=== PATIENT | female | born 1980 | race Caucasian/White ===

== ENCOUNTER 2019-09-02 10:25 | Emergency (ER) | payer OTHER, SELFPAY ==
[2019-09-02 10:36] VITALS: BP 107/76; PULSE 74; RESP 14; TEMP 36.6; O2SAT 98
--- NOTE | 2019-09-02 11:09 | ED.FEMALEGU ---
HPI - Female Genitourinary General Chief complaint: Urogenital-Female Stated complaint: blood in urine/painful urination Time Seen by Provider: 09/02/19 11:02 Source: patient and RN notes reviewed Mode of arrival: ambulatory Limitations: no limitations History of Present Illness HPI Narrative: Patient presents today complaining of a 3-day history of hematuria with dysuria, urgency, and frequency that started yesterday. This is accompanied by some suprapubic cramping. Denies back pain, fever, vaginal discharge. No history of UTIs. LMP was August 17. Patient has had cranberry juice and increased her water intake. MD elicited complaint: dysuria Related Data Allergies Allergy/AdvReac Type Severity Reaction Status Date / Time aloe vera Allergy Unknown Skin Verified 09/02/19 10:52 [Solarcaine Cool Aloe] Reaction benzocaine [Solarcaine] Allergy Unknown Skin Verified 09/02/19 10:52 Reaction codeine Allergy Unknown Nausea Verified 09/02/19 10:52 lidocaine Allergy Unknown Skin Verified 09/02/19 10:52 [Solarcaine Cool Aloe] Reaction triclosan [Solarcaine] Allergy Unknown Skin Verified 09/02/19 10:52 Reaction Review of Systems Review of Systems: Narrative: CONSTITUTIONAL: Denies body aches, fever, chills, or sweats. EYES: Denies visual changes, redness, or discharge. ENT: Denies rhinorrhea, congestion, sore throat, or otalgia. CARDIOVASCULAR: Denies chest pain, palpitations, or edema. RESPIRATORY: Denies cough or dyspnea. GASTROINTESTINAL: Denies abdominal pain, nausea, vomiting, or diarrhea. GENITOURINARY: +Dysuria, hematuria, suprapubic cramping, urgency, frequency. Denies flank pain SKIN: Denies rash, itching, or wounds. MUSCULOSKELETAL: Denies back pain, joint pain, or myalgia. NEUROLOGIC: Denies headache, numbness, tingling, or weakness. PSYCH: Denies depression or anxiety. [facility] Past Medical History Medical History (Updated 09/02/19 @ 11:12 by Genet Darke, PERSONAL LINES UNDERWRITER, ) Basal cell carcinoma Family History Family History (Updated 07/02/17 @ 14:36 by DOCTOR UNKNOWN) Father Diabetes mellitus Acute myocardial infarction Social History Social History Smoking status: Never smoker Alcohol intake: current Comments At time of signature, I have reviewed and agree with nursing past medical, surgical, social and family history unless otherwise noted. Please see nursing chart for further information. There is no relevant family history pertinent to the presenting complaint Exam Narrative: Exam Narrative: GENERAL: Well-appearing, well-nourished, and in no acute distress. HEAD: Normocephalic, atraumatic. EYES: EOMI. No redness or drainage. Conjunctivae normal. ENT: Mucous membranes pink and moist. NECK: Normal AROM. CHEST: No respiratory distress. Clear to auscultation. HEART: Regular rate and rhythm. No murmur appreciated. Normal peripheral pulses. ABDOMEN: Soft, nondistended, normal active bowel sounds.+Suprapubic tenderness.-CVAT MUSCULOSKELETAL: No bony tenderness. EXTREMITIES: Normal range of motion. No edema. SKIN: Warm, dry, no rash. Capillary refill normal. Normal skin turgor. NEURO: No focal deficits. Alert and oriented x3. Gait steady. PSYCH: Normal affect. No signs of depression or anxiety. Course Vital Signs Vital signs: Vital Signs Temperature 97.8 F 09/02/19 10:36 Pulse Rate 74 09/02/19 10:36 Respiratory Rate 14 09/02/19 10:36 Blood Pressure 107/76 09/02/19 10:36 Pulse Oximetry 98 09/02/19 10:36 Temperature 97.8 F 09/02/19 10:36 Pulse Rate 74 09/02/19 10:36 Respiratory Rate 14 09/02/19 10:36 Blood Pressure 107/76 09/02/19 10:36 Pulse Oximetry 98 09/02/19 10:36 Reviewed MDM - Female Genitourinary Differential Diagnosis Differential diagnosis: Likely urinary tract infection and cystitis Lab Data Attestation: I reviewed the patient's lab results. Labs: Urine Glucose Negative Reference Range: Negative*
== END 2019-09-02 11:16 | disposition home or self-care (01) ==
PROVIDERS: Emergency Provider Nurse Practitioner; PCP Obstetrics & Gynecology
DX: N30.01 Acute cystitis with hematuria (principal)
CPT/HCPCS: 81003; 87086; 87088; 99213; G0463

== ENCOUNTER 2021-07-01 07:03 | Outpatient (CLI) | payer OTHER, SELFPAY ==
--- NOTE | ~2021-07-01 | MM_ITS ---
EXAMINATION: MM screening [place] BI w [facility] HISTORY: Screening mammogram TECHNIQUE: Craniocaudal and mediolateral oblique 3-D tomosynthesis images were obtained and synthetic 2-D images were generated. CAD analysis was submitted and interpreted. COMPARISON: No prior mammogram is available for comparison at this institution. BREAST PARENCHYMAL COMPOSITION: The breasts are extremely dense, which lowers the sensitivity of mamm ography. FINDINGS: There is no evidence of suspicious mass, calcification, or architectural distortion to sugg est malignancy in either breast. IMPRESSION: 1. No mammographic evidence of malignancy. 2. Recommend routine screening mammography in one year. 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
== END 2021-07-01 07:04 | disposition home or self-care (01) ==
LOC: CHSIMG 07:05
PROVIDERS: PCP Internal Medicine; Visit Provider Internal Medicine
DX: Z12.31 Encounter for screening mammogram for malignant neoplasm of breast (principal)
CPT/HCPCS: 77063; 77067

== ENCOUNTER 2022-03-09 00:52 | Day surgery (SDC) | payer OTHER, SELFPAY ==
[2022-03-06 09:45] VITALS: BMI 28.3
[2022-03-09 06:28] VITALS: BP 111/78; PULSE 74; RESP 16; TEMP 36.2; O2SAT 100
[2022-03-09] MEDS: LACTATED RINGERS 1,000 ML 150 ML IV CONT (06:30)
--- NOTE | 2022-03-09 07:19 | WPDANESEPPF ---
Anes - Initial Pre Proc Eval Procedure: Operation Date: 03/09/22 07:30 Proposed Procedures p Screening Colonoscopy - Shon Ayers MD Date/Time: 03/09/22 07:19 Surgeon: Shon Ayers MD Pre Op Diagnosis: family hx colon ca Patient Data Age: 41 Gender: F Height: 1.63 m Weight: 75 kg Last Vital Signs Temp 97.1 F L 03/09/22 06:28 Pulse 74 03/09/22 06:28 Resp 16 03/09/22 06:28 BP 111/78 03/09/22 06:28 Pulse Ox 100 03/09/22 06:28 O2 Del Method Room Air 03/09/22 06:28 Allergies Allergy/AdvReac Type Severity Reaction Status Date / Time codeine AdvReac Intermediate Nausea Verified 03/09/22 06:25 aloe vera AdvReac Unknown Skin Verified 03/09/22 06:25 [Solarcaine Cool Aloe] Reaction benzocaine [Solarcaine] AdvReac Unknown Skin Verified 03/09/22 06:25 Reaction lidocaine AdvReac Unknown Skin Verified 03/09/22 06:25 [Solarcaine Cool Aloe] Reaction triclosan [Solarcaine] AdvReac Unknown Skin Verified 03/09/22 06:25 Reaction Home Medications Medication Instructions Recorded Confirmed Type valacyclovir 500 mg tablet 500 mg PO DAILY 03/06/22 03/09/22 History Patient hx anesthesia problems: none Family hx anesthesia problems: none Results Review: All pre-operative results and documents have been reviewed as part of the pre-operative evaluation. [facility] Past Medical History Medical History (Updated 09/03/19 @ 00:01 by Background Maggi) Basal cell carcinoma Family History Family History (Updated 07/02/17 @ 14:36 by DOCTOR UNKNOWN) Father Diabetes mellitus Acute myocardial infarction Social History Social History Smoking status: Never smoker Alcohol intake: current Drinks per week: 2 Alcohol use details: GLASSES WINE Substance use: never Substance use type: does not use Living arrangements: with family Spiritual care concerns: No Anes - Eval Final PreProcedure Day of Procedure 03/09/22 07:19 Patient weight: normal Heart: regular rate and rhythm Lungs: clear to auscultation Airway: Mallampati scale class II Neurological: alert and oriented Last oral intake: >/= 8 hours ASA classification: II Emergent: no Anesthetic plan: proceed Anesthesia type and monitoring: general GIVS and standard monitoring Results Review: All pre-operative results and documents have been reviewed as part of the pre-operative evaluation. Informed Consent: The patient's anesthetic plan and its attendant risks and benefits were discussed with the patient/family/POA. Questions were solicited and answers provided to the satisfaction of the patient/family/POA.
[2022-03-09 07:46] VITALS: BP 107/66; PULSE 71; RESP 18; O2SAT 100
--- NOTE | 2022-03-09 07:46 | PM.HPGS ---
History of Present Illness History of Present Illness Consent: Risks, benefits, and alternatives have been discussed and questions answered. Patient agrees to proceed with procedure. Chief complaint: family hx colon ca Narrative: Xochilt Wynn is a 41 year old female Presents for screening colonoscopy. Patient's family history is significant that her father had colon cancer. Patient reports that her current weight appetite and bowel movements are normal. She denies abdominal pain. She has had no bleeding. Family history is as stated. Review of Systems Review of Systems: Review of systems noncontributory. [facility] Past Medical History Medical History (Updated 03/09/22 @ 07:47 by Shon Ayers MD) Basal cell carcinoma Family History Family History (Updated 07/02/17 @ 14:36 by DOCTOR UNKNOWN) Father Diabetes mellitus Acute myocardial infarction Social History Social History Smoking status: Never smoker Alcohol intake: current Drinks per week: 2 Alcohol use details: GLASSES WINE Substance use: never Substance use type: does not use Living arrangements: with family Spiritual care concerns: No Meds Home Medications and Allergies Home Medications Medication Instructions Recorded Confirmed Type valacyclovir 500 mg tablet 500 mg PO DAILY 03/06/22 03/09/22 History Allergies Allergy/AdvReac Type Severity Reaction Status Date / Time codeine AdvReac Intermediate Nausea Verified 03/09/22 06:25 aloe vera AdvReac Unknown Skin Verified 03/09/22 06:25 [Solarcaine Cool Aloe] Reaction benzocaine [Solarcaine] AdvReac Unknown Skin Verified 03/09/22 06:25 Reaction lidocaine AdvReac Unknown Skin Verified 03/09/22 06:25 [Solarcaine Cool Aloe] Reaction triclosan [Solarcaine] AdvReac Unknown Skin Verified 03/09/22 06:25 Reaction Vital Signs Vital Signs - 24 hr 03/09/22 06:28 Temperature 97.1 F L Pulse Rate 74 Respiratory Rate 16 Blood Pressure 111/78 Pulse Oximetry 100 Oxygen Delivery Room Air Exam Narrative: Physical exam reveals patient to be alert. Vital signs stable. HEENT exam is unremarkable. Patient is anicteric. Lungs are clear to auscultation and percussion. Heart is without murmur or extra sounds. Abdomen bowel sounds are present soft nontender with no organomegaly. Digital external rectal exam is normal. Assessment and Plan Assessment and plan (1) Family history of colon cancer in father: Code(s): Z80.0 - Family history of malignant neoplasm of digestive organs Status: Acute Assessment and Plan: Patient's father had colon cancer. Plan for surveillance colonoscopy now and consider this at 5 year intervals in the future
[2022-03-09 07:56] VITALS: BP 105/80; PULSE 71; RESP 20; O2SAT 100
[2022-03-09 08:06] VITALS: BP 109/67; PULSE 62; RESP 14; O2SAT 100
== END 2022-03-09 08:23 | disposition home or self-care (01) ==
PROVIDERS: PCP Internal Medicine; Visit Provider Internal Medicine Gastroenterology
PROC: 0DJD8ZZ Inspection of Lower Intestinal Tract, Via Natural or Artificial Opening Endoscopic (ICD-10-PCS; CPT 45378; principal; 2022-03-09 07:30)
DX: Z12.11 Encounter for screening for malignant neoplasm of colon (principal); K64.8 Other hemorrhoids; K57.30 Diverticulosis of large intestine without perforation or abscess without bleeding; Z80.0 Family history of malignant neoplasm of digestive organs
CPT/HCPCS: 45378; J2704; J7120

== ENCOUNTER 2022-07-06 07:27 | Outpatient (CLI) | payer OTHER, SELFPAY ==
--- NOTE | ~2022-07-06 | MM_ITS ---
EXAMINATION: MM screening [facility] BI w yani HISTORY: Screening mammogram TECHNIQUE: Craniocaudal and mediolateral oblique 3-D tomosynthesis images were obtained and synthetic 2-D images were generated. CAD analysis was submitted and interpreted. COMPARISON: 07/01/2021 BREAST PARENCHYMAL COMPOSITION: The breasts are extremely dense, which lowers the sensitivity of mamm ography. FINDINGS: No suspicious mass, calcification, or architectural distortion are identified in either viola ast to suggest malignancy. There has been no suspicious interval change. IMPRESSION: 1. No mammographic evidence of malignancy. 2. Recommend routine screening mammography in one year. 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
== END 2022-07-06 07:28 | disposition home or self-care (01) ==
PROVIDERS: PCP Internal Medicine
DX: Z12.31 Encounter for screening mammogram for malignant neoplasm of breast (principal)
CPT/HCPCS: 77063; 77067

== ENCOUNTER 2023-07-09 12:40 | Outpatient (CLI) | payer OTHER, SELFPAY ==
--- NOTE | ~2023-07-09 | MM_ITS ---
EXAMINATION: MM screening [place] BI w yani HISTORY: Screening mammogram TECHNIQUE: Craniocaudal and mediolateral oblique 3-D tomosynthesis images were obtained and synthetic 2-D images were generated. CAD analysis was submitted and interpreted. COMPARISON: 07/16/2022, 06/2021 bilateral screening mammogram examinations BREAST PARENCHYMAL COMPOSITION: The breasts are heterogeneously dense, which may obscure small masses . FINDINGS: There is no evidence of suspicious mass, calcification, or architectural distortion to sugg est malignancy in either breast. There has been no suspicious interval change. IMPRESSION: 1. No mammographic evidence of malignancy. 2. Recommend routine screening mammography in one year. 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
== END 2023-07-09 12:41 | disposition home or self-care (01) ==
PROVIDERS: PCP Internal Medicine
DX: Z12.31 Encounter for screening mammogram for malignant neoplasm of breast (principal)
CPT/HCPCS: 77063; 77067

== ENCOUNTER 2024-11-21 08:19 | Emergency (ER) | payer OTHER, SELFPAY ==
--- NOTE | ~2024-11-21 | XR_ITS ---
EXAM/ PROCEDURE: XR ankle RT min 3V - 11/21/2024 8:38 CDT HISTORY: 43 years old Female with pain medial aspect, dropped heavy frozen object COMPARISON: None available TECHNIQUE: Three view(s) FINDINGS/ IMPRESSION: There are no fractures or dislocations.Joint spaces are within normal limits. Reviewed, dictated and finalized at location A.
--- OUTSIDE RECORDS SUMMARY | 2024-11-21 08:22 | XMS_ITS | Clinical Summary ---
Author Organization [facility] [place] [address] [facility] lto Address [address] [place] [address] Care Team Providers Care Canvass Manager Name Role Phone Denia Shultz MD Primary Care Provider Allergies No known active allergies Medications acidophilus-pec tin, citrus 100 million cell-10 mg capsule Take by mouth Active jjlukoq-svui-uw ant-yirk-rsqika 100 mg-150 mg- 50 mg-150 mg capsule Take by mouth Active multivitamin with minerals tablet Take 1 tablet by mouth daily Active progesterone (PROMETRIUM) 200 mg capsuleIndicati ons:Menorrhagia with regular cycle Take 1 capsule (200 mg total) by mouth daily 90 capsule 3 06/09/2024 Active Active Problems Problem Noted Date Diagnosed Date Menorrhagia with irregular cycle 09/15/2024 Encounters Date Type Department Care Team Description 09/17/2024 Results Follow-Up [facility] [address] [place] [address] Denis Taylor MD Surgical pathology 09/15/2024 2:19 PM CDT - 09/15/2024 11:59 PM CDT Hospital Encounter [address] [address] Menorrhagia with irregular cycle Discharge Disposition: Discharge to home or self care 09/15/2024 1:50 PM CDT Procedure visit [facility] [address] [place] [address] Denis Taylor MD Menorrhagia with irregular cycle (Primary Dx) 09/04/2024 Results [facility] [address] [place] [address] Denis Taylor MD US Pelvis W Endovaginal 09/01/2024 1:00 PM CDT Ancillary Procedure [facility] [address] [place] [address] Menorrhagia with irregular cycle 08/29/2024 2:45 PM CDT Office Visit [facility] [address] [place] [address] Denis Taylor MD Menorrhagia with irregular cycle (Primary Dx) 08/22/2024 8:00 AM CDT Lab [facility] [address] [place] [address] Menorrhagia with irregular cycle 08/22/2024 Results [facility] [address] [place] [address] Denis Taylor MD CBC with auto differential, Differential, auto from Last 3 Months Surgical History Surgery Date Site/Laterality Comments SKIN CANCER EXCISION 04/30/2017 - 04/29/2018 Basal cell NOSE SURGERY 04/30/1982 - 04/29/1983 Accident - cosmetic repair Medical History Medical History Date Comments No pertinent past medical history Family History Medical History Relation Name Comments Alzheimer's disease Father cause of , age 83 Diabetes Father Diabetes Father's Brother Diabetes Father's Sister Heart attack Maternal Grandmother cause o f Hypertension Maternal Grandmother Hypertension Mother Diabetes Paternal Grandfather Diabetes Paternal Grandmother Relation Name Status Comments Father Father's Brother Father's Sister Maternal Grandmother Mother Paternal Grandfather Paternal Grandmother Social History Tobacco Use Types Packs/Day Years Used Date Smoking Tobacco: Never Smokeless Tobacco: Never Comments No Sex and Gender Information Value Date Recorded Sex Assigned at Not on file Legal 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 Gender Identity Not on file Sexual Orientation Not on file Occupation Industry Job Start Date Job End Date Not on file Not on file Not on file Not on file Obstetrics History Para Term AB IAB SAB Ectopic Multiple Livin g Live Births 0 0 0 0 0 0 0 0 0 0 0 Last Filed Vital Signs Vital Sign Reading Time Taken Comments Blood Pressure 110/70 09/15/2024 1:55 PM CDT Pulse 69 02/24/2021 9:22 AM CDT Temperature 36.8 C (98.3 F) 02/24/2021 9:22 AM CDT Respiratory Rate 14 02/24/2021 9:22 AM CDT Oxygen Saturation 97% 02/24/2021 9:22 AM CDT Inhaled Oxygen Concentration - - Weight 64.4 kg (142 lb) 09/15/2024 1:55 PM CDT Height 162.6 cm (5' 4) 06/09/2024 1:55 PM POWDER GUARD Body Mass Index 24.37 06/09/2024 1:55 PM POWDER GUARD Plan of Treatment Upcoming Encounters Date Type Department Care Team (Late st Contact Info) Description 12/08/2024 7:30 AM CDT Hospital Encounter [facility] Operating Room [address] [place] [address] Denis Taylor MD [address] [place] [address] 12/08/2024 7:30 AM CDT - 12/08/2024 8:30 AM CDT Surgery [facility] Operating Room 1 [place] [address] Denis Taylor MD [address] [place] [address] DILATION AND CURETTAGE/HYSTEROS COPY/ABLATION ENDOMETRIAL-Minerv a Scheduled Procedures Name Priority Associated Diagnoses Date/Ti me DILATION AND CURETTAGE/HYSTEROSCOPY Menorrhagia with irregular cycle 12/08/2024 7:30 AM CDT Health Maintenance Due Date Last Done Comments Cervical Cancer Screening 1980 Depression Screening 1980 Hepatitis C Screening 1980 DTaP/Tdap/Td Vaccine (1 - Tdap) 12/16/1991 Varicella Vaccines (1 of 2 - 13+ 2-dose series) 1993 Hepatitis B Screening 1998 Regular Well Visit/Exam 18-64 1998 HPV Vaccines (1 - 3-dose SCD M series) 12/16/2007 Covid-19 Vaccine (3 - 2023-2 5 season) 2023 07/25/2020, 06/29/2020 Influenza Vaccine (#1) 2024 5, 02/16/2014 Breast Cancer Screening-Mammogram 07/11/2025 07/11/2024 Pneumococcal vaccine <65 Aged Out No longer eligible based on patient's age to complete this topic Procedures Procedure Name Priority Date/Time Associated Diagnosis Comments SURGICAL PATHOLOGY Routine 09/15/2024 10 :38 AM CDT Menorrhagia with irregular cycle US PELVIS W ENDOVAGINAL Schedule Routine, Read Routine (OP Routine) 09/01/2024 1:47 PM CDT Menorrhagia with irregular cycle DIFFERENTIAL AUTO Routine 08/22/2024 7:4 8 AM CDT Menorrhagia with irregular cycle CBC WITH AUTO DIFFERENTIAL Routine 08/22/2024 7:48 AM CDT Menorrhagia with irregular cycle SCREENING MAMMOGRAM BILATERAL W JUSTIN Schedule Routine, Read Routine (OP Routine) 07/11/2024 2:08 PM CDT Encounter for screening mammogram for breast cancer from Last 3 Months or Most Recently Relevant to Health Maintenance Results * Surgical pathology (09/15/2024 10:38 AM CDT) Tissue (Endometrial biopsy) 09/15/2024 10:38 AM CDT 09/16/2024 10:38 AM CDT Narrative PATHOLOGY CH - 09/17/2024 1:21 PM CDT EPIC results best viewed via link to PDF [facility] Department of Pathology [address] [place] [id number] Note to Patients: This report may contain a detailed description of human tissue sent by a health care provider to the laboratory for pathologic evaluation. The content of this report is essential for diagnosis and may provide important critical findings. This information may be unfamiliar to patients to review without a medical professional present. It is advised that the patient review this report in the presence of a health care provider who can answer questions and explain the details. Final Report Patient Name: YOVANNY CHINCHILLA Address: [address] [place] [address] [place] [address] Gender: F : 1980 (Age: 43) Service: Location: [facility] : [id number] [facility] #: [id number] Patient Type: SPECIMEN Taken: 09/15/2024 Received: 09/16/2024 Accessioned: 09/16/2024 Reported: 09/17/2024 Physician(s):Denis Taylor MD Diagnosis: A. Uterus, endometrium biopsy- Benign fragments of inactive superficial endometrium including detached glandular strips Negative for hyperplasia and carcinoma Shabnam Hartley M.D. Report Electronically Reviewed and Signed Out By Shabnam Hartley M.D. 09/17/2024 13:21:11 Specimen(s) Received: A: Endometrium Microscopic Description: Microscopic examination corroborates the diagnosis. Clinical History: Menorrhagia with irregular cycle Gross Description: The specimen is submitted in a single formalin filled container labeled YOVANNY GREEN and endometrium. It is an approximate 0.5 cc aggregate of hemorrhagic mucoid material. All in one cassette. Maty Nowak R.N., P.A./Shabnam Hartley M.D. REPORT IMAGES AND SCANNED DOCUMENTS, IF INCLUDED, ONLY VIEWABLE IN PDF VERSION OF REPORT The performance characteristics of some immunohistochemical stains, fluorescence in-situ hybridization tests and immunophenotyping by flow cytometry cited in this report (if any) were determined by the Surgical Pathology Department at [facility] as part of an ongoing quality consultant program and in compliance with federally mandated regulations drawn from the Clinical Laboratory Improvement Act of 1988 (CLIA '88). Some of these tests rely on the use of analyte specific reagents and are subject to specific labeling requirements by the US Food and Drug Administration. Such diagnostic tests may only be performed in a facility that is certified by the Department of Health and Human Services as a high complexity laboratory under CLIA '88. The FDA has determined that such clearance or approval is not necessary. This test is used for clinical purposes. It should not be regarded as investigational or for research. Nevertheless, federal rules concerning the medical use of analyte specific reagents require that the following disclaimer be attached to the report: This test was developed and its performance characteristics determined by the Surgical Pathology Department [facility]. It has not been cleared or approved by the U. S. Food and Drug Administration. Note for decalcified specimens: This assay has not been validated on decalcified tissues. Results should be interpreted with caution given the possibility of false negativity on decalcified specimens us Denis Taylor MD LAB PATHOLOGY ORDERAB LES Final Result PATHOLOGY [address] [place] [address] * US Pelvis W Endovaginal (09/01/2024 1:47 PM CDT) Anatomical Region Laterality Modality Pelvis N/A Ultrasound 09/04/2024 9:59 AM CDT Narrative 09/04/2024 10:02 AM CDT EXAM DESCRIPTION: US PELVIS W ENDOVAGINAL REASON FOR STUDY: prolonged, heavy bleeding Menorrhagia - prolonged and heavy bleeding TECHNIQUE: Grayscale ultrasound of the pelvic contents was performed with transabdominal and transvaginal transducer. COMPARISON: None FINDINGS: UTERUS: The uterus is anteverted. The uterus is heterogeneous in echotexture and measures 4.2 x 5.6 x 8.6 cm. 2.1 x 2.2 x 2.5 cm isoechoic mass within the mid right uterus. 2.6 x 2.6 x 2.6 cm hypoechoic mass within the inferior right uterus. ENDOMETRIUM: The endometrium measures 3 mm in thickness. RIGHT OVARY: The right ovary measures 3.2 x 4.5 x 3.4 cm. There is documentation of color Doppler flow in the right ovary. A 2.8 x 2.0 x 2.6 cm homogeneous isoechoic mass is seen within the right ovary with low-level echoes and no internal blood flow. LEFT OVARY: The left ovary measures 2.3 x 3.2 x 4.7 cm. There is documentation of color Doppler flow in the left ovary. The left ovary appears unremarkable. PELVIC FLUID: There is no evidence of free fluid in the pelvis. OTHER: No other significant findings. IMPRESSION: 1. Indeterminate 2.8 cm right ovarian mass, possibly representing an endometrioma. A follow-up pelvic MRI is recommended for further evaluation. 2. Uterine fibroids measuring up to 2.6 cm. THIS IS AN ELECTRONICALLY VERIFIED FINAL REPORT 09/04/2024 10:02 AM - Electronically signed by Tong Simpson M.D. AG: FEDERICO Report ID: [id number] Reading Location: [id number] Procedure Note Tong Simpson MD - 09/04/2024 EXAM DESCRIPTION: US PELVIS W ENDOVAGINAL REASON FOR STUDY: prolonged, heavy bleeding Menorrhagia - prolonged and heavy bleeding TECHNIQUE: Grayscale ultrasound of the pelvic contents was performed with transabdominal and transvaginal transducer. COMPARISON: None FINDINGS: UTERUS: The uterus is anteverted. The uterus is heterogeneous in echotexture and measures 4.2 x 5.6 x 8.6 cm. 2.1 x 2.2 x 2.5 cmisoechoic mass within the mid right uterus. 2.6 x 2.6 x 2.6 cm hypoechoic masswithin the inferior right uterus. ENDOMETRIUM: The endometrium measures 3 mm in thickness. RIGHT OVARY: The right ovary measures 3.2 x 4.5 x 3.4 cm. There is documentation of color Doppler flow in the right ovary. A 2.8 x 2.0 x 2.6cm homogeneous isoechoic mass is seen within the right ovary with low-level echoes and no internal blood flow. LEFT OVARY: The left ovary measures 2.3 x 3.2 x 4.7 cm. There is documentation of color Doppler flow in the left ovary. The left ovaryappears unremarkable. PELVIC FLUID: There is no evidence of free fluid in the pelvis. OTHER: No other significant findings. IMPRESSION: 1. Indeterminate 2.8 cm right ovarian mass, possibly representing an endometrioma. A follow-up pelvic MRI is recommended for furtherevaluation. 2. Uterine fibroids measuring up to 2.6 cm. THIS IS AN ELECTRONICALLY VERIFIED FINAL REPORT 09/04/2024 10:02 AM - Electronically signed by Tong Simpson M.D. AG: FEDERICO Report ID: [id number] Reading Location: [id number] Denis Taylor MD IMG US PROCEDURES Fin al Result * Differential, auto (08/22/2024 7:48 AM CDT) Neutrophil abs 2.97 1.50 - 6.50 K/cumm Comment:Testing performed by : [address], [address] Imm gran abs 0.01 0.00 - 0.10 K/cumm [facility] CH Comment:Testing performed by : [address], [address] Lymphocyte abs 1.51 0.80 - 3.30 K/cumm [facility] CH Comment:Testing performed by : [facility], [address] [place] [address], [address] Monocyte abs 0.35 0.20 - 0.80 K/cumm CERNER CH Comment:Testing performed by : [address] [address] Eosinophil abs 0.08 0.00 - 0.50 K/cumm C[facility] CH Comment:Testing performed by : [address] [address] Basophil abs 0.03 0.00 - 0.10 K/cumm [facility] CH Comment:Testing performed by : [address], [address] Neutrophil pct 60.0 % [facility] CH Comment: Interpretive Data Percent cell count reference ranges are not reported, since discordance with absolute values may lead to misinterpretation of CBC data. Current Interpretive Data was last revised on 2017. Testing performed by: [address], [address] Imm gran pct 0.2 % [facility] Comment: Interpretive Data Percent cell count reference ranges are not reported, since discordance with absolute values may lead to misinterpretation of CBC data. Current Interpretive Data was last revised on 2017. Testing performed by: [facility], [address] [place] [address]., [address] Lymphocyte pct 30.5 % [facility] Comment: Interpretive Data Percent cell count reference ranges are not reported, since discordance with absolute values may lead to misinterpretation of CBC data. Current Interpretive Data was last revised on 2017. Testing performed by: [address] [address] Monocyte pct 7.1 % [facility] Comment: Interpretive Data Percent cell count reference ranges are not reported, since discordance with absolute values may lead to misinterpretation of CBC data. Current Interpretive Data was last revised on 2017. Testing performed by: [address] [address] Eosinophil pct 1.6 % [facility] Comment: Interpretive Data Percent cell count reference ranges are not reported, since discordance with absolute values may lead to misinterpretation of CBC data. Current Interpretive Data was last revised on 2017. Testing performed by: [address] [address] Basophil pct 0.6 % [facility] Comment: Interpretive Data Percent cell count reference ranges are not reported, since discordance with absolute values may lead to misinterpretation of CBC data. Current Interpretive Data was last revised on 2017. Testing performed by: [address] [address] Blood 08/22/2024 7:48 AM CDT 08/22/2024 3:04 PM CDT us Denis Taylor MD LAB BLOOD ORDERABLES Final Result [facility] [address] Department [place] [address] * (ABNORMAL) CBC with auto differential (08/22/2024 7:48 AM CDT) WBC 4.95 3.80 - 9.90 K/cumm Comment:Testing performed by : [address] [address] Hgb 12.3 11.9 - 15.5 g/dL [facility] Comment:Testing performed by : [address], [address] Hct 36.7 35.6 - 45.5 % [facility] CH Comment:Testing performed by : [address], [address] Plt 311 150 - 400 K/cumm [facility] CH Comment:Testing performed by : [address], [address] MPV 10.0 9.1 - 12.3 fL [facility] Comment:Testing performed by : [address], [address] RBC 3.86(L) 3.90 - 5.20 M/cumm [facility] CH Comment:Testing performed by : [address], [address] MCV 95.1 81.3 - 96.4 fL [facility] Comment:Testing performed by : [address], [address] MCH 31.9 27.1 - 33.3 pg [facility] Comment:Testing performed by : [address], [address] MCHC 33.5 32.3 - 35.7 g/dL [facility] Comment:Testing performed by : [address], [address] RDW CV 12.6 11.1 - 14.9 % [facility] Comment:Testing performed by : [address], [address] RDW SD 43.7 35.7 - 48.1 fL [facility] Comment:Testing performed by : [address], [address] NRBC abs 0.00 0.00 - 0.01 K/cumm [facility] CH Comment:Testing performed by : [address], [address] Blood 08/22/2024 7:48 AM CDT 08/22/2024 3:04 PM CDT us Denis Taylor MD LAB BLOOD ORDERABLES Final Result [facility] [address] [address] Department [place] [address] * Screening Mammogram Bilateral W Justin (07/11/2024 2:08 PM CDT) Anatomical Region Laterality Modality Breast Bilateral Mammography 07/14/2024 8:48 AM CDT Impressions 07/14/2024 8:48 AM CDT There is no mammographic evidence of malignancy. A 1 year screening mammogram is recommended. BI-RADS: 1 - Negative. The patient has been or will be contacted. The patient will be entered into a reminder system with a target due date of 1 year for her next mammogram. Electronically signed by: Yvonne Batista M.D. Narrative 07/14/2024 8:48 AM CDT EXAMINATION: SCREENING MAMMOGRAM BILATERAL W JUSTIN ORDERING HEALTHCARE PROVIDER: DENIS TAYLOR HISTORY: Routine screening mammography. COMPARISON: 07/09/2023, 07/06/2022, 07/01/2021 TECHNIQUE: CC and MLO views of the bilateral breasts were obtained with digital technique using breast tomosynthesis with C view. Computer aided detection was utilized. FINDINGS: DENSITY: The breasts are heterogeneously dense, which may obscure small masses. BREASTS: There are no suspicious masses, suspicious calcifications, or other suspicious findings in either breast. There has been no suspicious interval change. Denis Taylor MD IMG MAMMO PROCEDURES Final Result from Last 3 Months or Most Recently Relevant to Health Maintenance Insurance [employer] [facility] Care Teams Canvass Manager Relationship Specialty Start Date End Date Denia Shultz MD [address] [place] [address] PCP - General Internal Medicine 02/24/21
--- OUTSIDE RECORDS SUMMARY | 2024-11-21 08:22 | XMS_ITS | Clinical Summary ---
Author Organization [facility] Address [address] [place] [address] Care Team Providers Care Asphalt Plant Laborer Name Role Phone Waldemar Villarreal MD Unavailable [phone] Source Comments [facility],non-owned Affiliates and Associated Physician Practices is amultiple site organization consisting of ambulatory clinics and hospital sitesin [place], [place], [place] and [place]. This disclosure is being madepursuant to the Care Everywhere program and may not contain all information available regarding this patient. Last updated 18.[facility] Allergies No known active allergies Medications * Be aware that medications may not be up to date on this document. Alwaysverify current medications with the patient. valACYclovir (VALTREX) 500 MG tabletIndications: Well woman exam with routine gynecological exam Take 1 tablet by mouth 2 times daily 10 tablet 2 9 Active Immunizations Immunization Administration Dates Next Due INFLUENZA VACCINE 03/05/2015,02/16/2014 Social History Tobacco Use Types Packs/Day Years Used Date Smoking Tobacco: Never Smokeless Tobacco: Never Alcohol Use Standard Drinks/Week Comments Yes 0 (1 standard drink = 0.6 oz pur e alcohol) PHQ-2 Answer Date Recorded PHQ2 TOTAL SCORE 0 09/20/2021 Comments No Sex and Gender Information Value Date Recorded Sex Assigned at Female 07/11/2021 8:19 PM CDT 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 Gender Identity Female 07/11/2021 8:19 PM CDT Sexual Orientation Straight 07/11/2021 8: 19 PM CDT Last Filed Vital Signs Vital Sign Reading Time Taken Comments Blood Pressure 126/72 09/22/2021 9:28 AM CDT Pulse - - Temperature - - Respiratory Rate - - Oxygen Saturation - - Inhaled Oxygen Concentration - - Weight 74.4 kg (164 lb) 09/22/2021 9:28 AM CDT Height 162.6 cm (5' 4) 09/22/2021 9:28 AM CDT Body Mass Index 28.15 09/22/2021 9:28 AM CDT Plan of Treatment Health Maintenance Due Date Last Done Comments LIPID TESTING 1980 HIV SCREENING 12/16/1995 HEPATITIS C SCREENING 12/11/1998 DTAP/TDAP/TD VACCINES (1 - Tdap) 12/16/1999 HEPATITIS B VACCINE (1 of 3 - 19+ 3-dose series) 12/16/1999 HPV VACCINE (1 - 3-dose SCDM series) 12/16/2007 SCREENING FOR DIABETES 07/01/2021 COVID-19 VACCINE ( season) 2023 05/02/2021, 07/25/2020, 06/29/2020 DEPRESSION SCREENING 04/30/2024 09/22/2021 INFLUENZA VACCINE (#1) 2024 03/05/2015, 2013 MAMMOGRAM 07/08/2025 07/09/2023, 03/0 12/2022, 07/01/2021, Additional history exists PAP with HPV 09/22/2026 09/22/2021, 05/2 07/2020, 11/19/2018, Additional history exists ZOSTER VACCINE (1 of 2) 2030 HIB VACCINE Aged Out No longer eligi ble based on patient's age to complete this topic MENINGOCOCCAL (Group B) VACCINE SHARED DECISION-MAKING Aged Out No longer eligible based on patient's age to complete this topic MENINGOCOCCAL GROUPS A/C/Y/W VACCINE Aged Out No longer eligible based on patient's age to complete this topic PNEUMOCOCCAL VACCINE Aged Out No long er eligible based on patient's age to complete this topic Procedures Procedure Name Priority Date/Time Associated Diagnosis Comments MAMMOGRAM 07/09/2023 PAP IG LB+HPV APTIMA Routine 09/22/2021 10:45 AM CDT Well woman exam with routine gynecological exam from Last 3 Months or Most Recently Relevant to Health Maintenance Results * MAMMOGRAM (07/09/2023) Anatomical Region Laterality Modality Other 07/09/2023 Narrative 07/09/2023 Ordered by an unspecified provider. us Scanned Document SCANNING ONLY Final Result * PAP IG LB+HPV APTIMA (09/22/2021 10:45 AM CDT) Diagnosis [facility] INSURANCE BILL Comment:NEGATIVE FOR INTRAEP ITHELIAL LESION OR MALIGNANCY. Specimen Adequacy [facility] INSURANCE BILL Comment:Satisfactory for dorys luation. No endocervical component is identified. Clinician Provided ICD10 [facility] INSURANCE BILL Comment:Z01.419 Performed by [facility] INSURANCE BILL Comment:Tashia Davis, Cytot echnologist (ASCP) Comment . [facility] INSURANCE BILL Note [facility] INSURANCE BILL Comment: The Pap smear is a screening test designed to aid in the detection of premalignant and malignant conditions of the uterine cervix. It is not a diagnostic procedure and should not be used as the sole means of detecting cervical cancer. Both false-positive and false-negative reports do occur. . [facility] CPT Code Automation [facility] INSURANCE BILL Comment: This liquid based ThinPrep(R) pap test was screened with the use of an image guided system. Human papillomavirus Aptima Negative Negative [facility] INSURANCE BILL Comment: This nucleic acid amplification test detects fourteen high-risk HPV types (16,18,31,33,35,39,45,51,52,56,58,59,66,68) without differentiation. Pathology/Cytolog y PART OF UTERINE CERVIX / Unknown 09/22/2021 10:45 AM CDT 09/22/2021 Narrative [facility] INSURANCE BILL - 09/27/2021 5:07 PM CDT Source.............Cervix;Endocervix No. of containers..01 ThinPrep Vial Resulting Agency Comment Lab Testing performed at: [employer] [id number] Waldemar Villarreal MD LAB - PATHOLOGY/CYTOLOGY OR DERABLES Final Result [facility] INSURANCE BILL [address] [place] [address] from Last 3 Months or Most Recently Relevant to Health Maintenance Insurance AET [employer] Care Teams Asphalt Plant Laborer Relationship Specialty Start Date End Date Waldemar Villarreal MD [address] [place] [address] Obstetrics and Gynecology 09/20/20
--- OUTSIDE RECORDS SUMMARY | 2024-11-21 08:22 | XMS_ITS | Referral Summary ---
Author Organization [facility] [address] [facility] lto Address [address] [address] Care Team Providers Care Manufacturer'S Representative Name Role Phone Denia Shultz MD Primary Care Provider [phone] Encounters Date Type Department Care Team Description 09/17/2024 Results Follow-Up [facility] [address] [place] [address] Denis Taylor MD Surgical pathology 09/15/2024 2:19 PM CDT - 09/15/2024 11:59 [place] [address] Menorrhagia with irregular cycle Discharge Disposition: Discharge to home or self care 09/15/2024 1:50 PM CDT Procedure visit [facility] [address] [place] [address] Denis Taylor MD Menorrhagia with irregular cycle (Primary Dx) 09/04/2024 Results Follow-Up [facility] [address] [place] [address] Denis Taylor MD US Pelvis W Endovaginal 09/01/2024 1:00 PM CDT Ancillary Procedure [facility] [address] [place] [address] Menorrhagia with irregular cycle 08/29/2024 2:45 PM CDT Office Visit [facility] [address] [place] [address] Denis Taylor MD Menorrhagia with irregular cycle (Primary Dx) 08/22/2024 [facility] [address] [place] [address] Denis Taylor MD CBC with auto differential, Differential, auto 08/22/2024 8:00 AM CDT Lab [facility] [address] [place] [address] Menorrhagia with irregular cycle from Last 3 Months Allergies No known active allergies Medications acidophilus-pec tin, citrus 100 million cell-10 mg capsule Take by mouth Active jwvsklq-uwwu-xj atp-dnpw-utptlf 100 mg-150 mg- 50 mg-150 mg capsule Take by mouth Active multivitamin with minerals tablet Take 1 tablet by mouth daily Active progesterone (PROMETRIUM) 200 mg capsuleIndicati ons:Menorrhagia with regular cycle Take 1 capsule (200 mg total) by mouth daily 90 capsule 3 06/09/2024 Active Active Problems Problem Noted Date Diagnosed Date Menorrhagia with irregular cycle 09/15/2024 Social History Tobacco Use Types Packs/Day Years Used Date Smoking Tobacco: Never Smokeless Tobacco: Never Comments No Sex and Gender Information Value Date Recorded Sex Assigned at Not on file Legal Sex 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 Gender Identity Not on file Sexual Orientation Not on file Occupation Industry Job Start Date Job End Date Not on file Not on file Not on file Not on file Last Filed Vital Signs Vital Sign Reading [...] 162.6 cm (5' 4) 06/09/2024 1:55 PM 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 Body Mass Index 24.37 06/09/2024 1:55 PM 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 Plan of Treatment Upcoming Encounters Date Type Department Care Team (Late st Contact Info) Description 12/08/2024 7:30 AM CDT Hospital Encounter [facility] Operating Room [address] [place] [address] Denis Taylor MD [address] [place] [address] 12/08/2024 7:30 AM CDT - 12/08/2024 8:30 AM CDT Surgery [facility] Operating Room [address] [place] [address] Denis Taylor MD [address] [place] [id number] DILATION AND CURETTAGE/HYSTEROS COPY/ABLATION ENDOMETRIAL-Minerv a Scheduled Procedures Name Priority Associated Diagnoses Date/Ti me DILATION AND CURETTAGE/HYSTEROSCOPY Menorrhagia with irregular cycle 12/08/2024 7:30 AM CDT Procedures Procedure Name Priority Date/Time Associated Diagnosis [...] results best viewed via link to PDF [facility] Department of Pathology [address] [place] [id number] Note to Patients: This report may [...] Final Report Patient Name: YOVANNY CHINCHILLA Address: [address] [place] [address] [place] [address] Gender: F : 1980 (Age: 43) Service: Location: [facility] #: [id number] Patient Type: SPECIMEN Taken: 09/15/2024 Received: 09/16/2024 [...] determined by the Surgical Pathology Department at [facility] as part of an ongoing aircraft quality control inspector program and in compliance with federally mandated [...] characteristics determined by the Surgical Pathology Department [facility]. It has not been cleared or approved by the U. S. Food and Drug Administration. Note for decalcified specimens: This assay has not been validated on decalcified tissues. Results should be interpreted with caution given the possibility of false negativity on decalcified specimens us Denis Taylor MD LAB PATHOLOGY ORDERAB LES Final Result PATHOLOGY [address] [place] [address] * US Pelvis W Endovaginal (09/01/2024 1:47 [...] Tong Simpson M.D. AG: [employer] Report ID: [id number] Reading Location: [id number] Procedure Note Tong Simpson MD - 09/04/2024 [...] Tong Simpson M.D. AG: [employer] Report ID: [id number] Reading Location: [place] [address] us Denis Taylor MD IMG US PROCEDURES Fin al Result * Differential, auto (08/22/2024 7:48 AM CDT) Neutrophil abs 2.97 1.50 - 6.50 K/cumm Comment:Testing performed by : [address] [address] Imm gran abs 0.01 0.00 - 0.10 K/cumm CERNER CH Comment:Testing performed by : [address] [address] Lymphocyte abs 1.51 0.80 - 3.30 K/cumm CERNER CH Comment:Testing performed by : [address] [address] Monocyte abs 0.35 0.20 - 0.80 K/cumm CERNER CH Comment:Testing performed by : [address] [address] Eosinophil abs 0.08 0.00 - 0.50 K/cumm CERNER CH Comment:Testing performed by : [address], [address] Basophil abs 0.03 0.00 - 0.10 K/cumm CERNER CH Comment:Testing performed by : [address] [address] Neutrophil pct 60.0 % CERNER CH Comment: Interpretive Data Percent cell count reference ranges are not reported, since discordance with absolute values may lead to misinterpretation of CBC data. Current Interpretive Data was last revised on 2017. Testing performed by: [address] [address] Imm gran pct 0.2 % CERNER CH Comment: Interpretive Data Percent cell count reference ranges are not reported, since discordance with absolute values may lead to misinterpretation of CBC data. Current Interpretive Data was last revised on 2017. Testing performed by: [address] [address] Lymphocyte pct 30.5 % CERNER CH Comment: Interpretive Data Percent cell count reference ranges are not reported, since discordance with absolute values may lead to misinterpretation of CBC data. Current Interpretive Data was last revised on 2017. Testing performed by: [address], [address] Monocyte pct 7.1 % CERNER CH Comment: Interpretive Data Percent cell count reference ranges are not reported, since discordance with absolute values may lead to misinterpretation of CBC data. Current Interpretive Data was last revised on 2017. Testing performed by: [address] [address] Eosinophil pct 1.6 % CERNER CH Comment: Interpretive Data Percent cell count reference ranges are not reported, since discordance with absolute values may lead to misinterpretation of CBC data. Current Interpretive Data was last revised on 2017. Testing performed by: [address] [address] Basophil pct 0.6 % CERNER CH Comment: Interpretive Data Percent cell count reference ranges are not reported, since discordance with absolute values may lead to misinterpretation of CBC data. Current Interpretive Data was last revised on 2017. Testing performed by: [address] [address] Blood 08/22/2024 7:48 AM CDT 08/22/2024 3:04 PM CDT us Denis Taylor MD LAB BLOOD ORDERABLES Final Result [address] Department [place] [address] * (ABNORMAL) CBC with auto differential (08/22/2024 7:48 AM CDT) WBC 4.95 3.80 - 9.90 K/cumm Comment:Testing performed by : [facility], [address] [place] [address], [address] Hgb 12.3 11.9 - 15.5 g/dL CERNER Comment:Testing performed by : [address], [address] Hct 36.7 35.6 - 45.5 % CERNER CH Comment:Testing performed by : [address], [address] Plt 311 150 - 400 K/cumm CERNER CH Comment:Testing performed by : [address], [address] MPV 10.0 9.1 - 12.3 fL CERNER CH Comment:Testing performed by : [address], [address] RBC 3.86(L) 3.90 - 5.20 M/cumm CERNER CH Comment:Testing performed by : [address], [address] MCV 95.1 81.3 - 96.4 fL CERNER CH Comment:Testing performed by : [address], [address] MCH 31.9 27.1 - 33.3 pg CERNER CH Comment:Testing performed by : [address], [address] MCHC 33.5 32.3 - 35.7 g/dL CERNER CH Comment:Testing performed by : [address], [address] RDW CV 12.6 11.1 - 14.9 % CERNER CH Comment:Testing performed by : [address], [address] RDW SD 43.7 35.7 - 48.1 fL GRADY Comment:Testing performed by : [facility], [address] [place] [address]., [address] NRBC abs 0.00 0.00 - 0.01 K/cumm GRADY Comment:Testing performed by : [address] [address] Blood 08/22/2024 7:48 AM CDT 08/22/2024 3:04 PM CDT us Denis Taylor MD LAB BLOOD ORDERABLES Final Result GR[facility] [address] Department of Laboratories [place] [id number] * Screening Mammogram Bilateral W Justin (07/11/2024 [...] There has been no suspicious interval change. us Denis Taylor MD IMG MAMMO PROCEDURES Final Result from Last 3 Months or Most Recently Relevant to Health Maintenance Insurance [facility] H[facility] Care Teams Manufacturer'S Representative Relationship Specialty Start Date End Date Denia Shultz MD [address] [place] [address] PCP - General Internal Medicine 02/24/21
--- NOTE | 2024-11-21 08:36 | ED_ITS ---
HPI - Extremity Injury (Lower) General Chief Complaint: Extremity Injury, Lower Stated Complaint: Right Ankle Injury Time Seen by Provider: 11/21/24 08:36 Source: patient Mode of arrival: ambulatory Limitations: no limitations History of Present Illness HPI Narrative: 43-year-old female presents with complaint of pain to right ankle for 4 days. Patient dropped have the frozen object on to right ankle. Reports swelling, decreased range of motion, weakness . Was unable to drive herself to work due to being uncomfortable stepping on gas and brake pedals. Has walker at home that she has been using when ambulatory. All systems reviewed and negative except as noted above. Related Data Home Medications ?Medication ?Instructions ?Recorded ?Confirmed ?Last Taken ?Type valacyclovir 500 mg tablet 500 mg PO DAILY 03/06/22 03/09/22 Unknown History progesterone micronized 200 mg mg 11/21/24 Unknown History capsule Allergies Allergy/AdvReac Type Severity Reaction Status Date / Time codeine AdvReac Intermediate Nausea Verified 11/21/24 08:38 aloe vera (Solarcaine Cool AdvReac Unknown Skin Verified 11/21/24 08:38 Aloe) Reaction benzocaine (Solarcaine) AdvReac Unknown Skin Verified 11/21/24 08:38 Reaction lidocaine (Solarcaine Cool AdvReac Unknown Skin Verified 11/21/24 08:38 Aloe) Reaction triclosan (Solarcaine) AdvReac Unknown Skin Verified 11/21/24 08:38 Reaction PMFSH Past Medical History Medical History (Updated 11/21/24 @ 09:02 by Bailey Wallis NP) Basal cell carcinoma Family History Family History (Updated 07/02/17 @ 14:36 by DOCTOR UNKNOWN) Father Diabetes mellitus Acute myocardial infarction Social History Social History Smoking status: Never smoker Alcohol intake: current Drinks per week: 2 Alcohol use details: GLASSES WINE Substance use: never Substance use type: does not use Living arrangements: with family Spiritual care concerns: No Comments At time of signature, agree with nursing past medical, surgical, social and family history. There is no relevant family history pertinent to the presenting complaint. Exam Narrative: GENERAL: This is a well-nourished, well-developed patient, in no apparent distress. HEAD: normocephalic, atraumatic. EYES: PERRL. Sclera clear/white. Vision is grossly intact. EARS: External ears normal NOSE: External nose normal NECK: Neck supple, non-tender without lymphadenopathy, masses or thyromegaly. CARDIOVASCULAR: Regular rate and rhythm without murmurs, gallops, or rubs. RESPIRATORY: Clear to auscultation. Breath sounds equal bilaterally. No wheezes, rales, or rhonchi. SKIN: warm, Dry, intact with no suspicious lesions or rash, good texture and turgor. NEURO: awake, alert, and oriented to person, place and time. There were no obvious focal neurologic abnormalities. EXTREMITIES: tender to tibialis anterior tendon. mild swelling. no bony tenderness. ROM decreased due to pain. no ankle instablity noted. Course Course Level of Care: Express Care Visit Vital Signs Vital signs: Vital Signs Temperature 36.7 C 11/21/24 08:37 Pulse Rate 84 11/21/24 08:37 Respiratory Rate 16 11/21/24 08:37 Blood Pressure 121/71 11/21/24 08:37 Pulse Oximetry 100 11/21/24 08:37 Oxygen Delivery Room Air 11/21/24 08:37 Temperature 36.7 C 11/21/24 08:37 Pulse Rate 84 11/21/24 08:37 Respiratory Rate 16 11/21/24 08:37 Blood Pressure 121/71 11/21/24 08:37 Pulse Oximetry 100 11/21/24 08:37 Oxygen Delivery Room Air 11/21/24 08:37 reviewed MDM - Extremity Injury (Lower) MDM Narrative Medical decision making narrative: xray of right ankle normal. pt reports weakness to R ankle. Has not wanted to drive to work. uncomfortable using gas/brake pedals. Recommened continued rest. if still having weakness in the next 2 to 3 wks, will follow up with orthopedics. Differential Diagnosis Differential diagnosis: Likely ankle sprain and strain, ankle fracture and other (contusion) Discharge Plan Discharge Clinical Impression: Contusion of ankle, right Patient Disposition: Home Condition: Stable Instructions: Antibiotic Form, Contusion in Adults (ED) Additional Instructions: the x-ray of your right ankle was negative for fracture. Take ibuprofen or Tylenol every 6-8 hours as needed for pain. Elevate when at rest. Apply ice as needed for pain. Follow-up with movement education specialist if range of motion and pain not improving. Patient Language: Spanish Prescriptions: No Action progesterone micronized 200 mg capsule valacyclovir 500 mg tablet 500 mg PO DAILY Follow-up/Referrals: Dennis Salgado MD [Physician] - ( follow-up with movement education specialist if range of motion not improving) Denia Shultz MD [Primary Care Provider] - Stand Alone Forms: Work/School Release IP Time of Disposition: 09:03
[2024-11-21 08:37] VITALS: BP 121/71; PULSE 84; RESP 16; TEMP 36.7; O2SAT 100
== END 2024-11-21 09:11 | disposition home or self-care (01) ==
PROVIDERS: Emergency Provider Nurse Practitioner Family; PCP Internal Medicine
DX: S90.01XA Contusion of right ankle, initial encounter (principal); W20.8XXA Other cause of strike by thrown, projected or falling object, initial encounter; Z85.828 Personal history of other malignant neoplasm of skin
CPT/HCPCS: 73610; 99213; G0463